=== PATIENT | female | born 1990 | race Two or more races ===

== ENCOUNTER 2017-12-20 18:37 | Emergency (ER) | payer MEDICAID ==
[~2017-12-20] VITALS: Ht 175.3 cm; Wt 90.7 kg
[2017-12-20 18:37] VITALS: BP 109/77
[2017-12-20] MEDS ORDERED: Haloperidol 5mg/ml Inj IM ONE (19:30)
[2017-12-20] MEDS ORDERED: DiphenhydrAMINE 50mg/ml Inj IVP ONE (19:30)
[2017-12-20] MEDS ORDERED: DiphenhydrAMINE 50mg/ml Inj IM ONE (19:30)
--- NOTE | 2017-12-20 19:37 | Emergency Room Report ---
History of Present Illness General Chief Complaint: Behavioral Complaint Source: Patient (Kendall Tate) Present Illness HPI 27-year-old female patient presents ER brought in by ambulance and police for behavioral complaints. Police report that patient was allegedly hitting herself and pushing her mother whenever called to the residence by the mother. Mother reports patient has history of schizophrenia, does not know what medications patient is currently taking. Denies other acute complaints. Denies bleeding or head trauma. Denies vomiting or loss consciousness. Denies fever, chest pain, shortness of breath. Police state patient is not going to be incarcerated at this time. Denies hx of diabetes. Patient was placed on a hold. (Kendall Tate) Allergies: Coded Allergies: No Known Allergies (Unverified , 12/20/17) Patient History Past Medical History: see triage record Reviewed Nursing Documentation: PMH: Agreed; PSxH: Agreed (Kendall Tate) Nursing Documentation-PMH Hx Hypertension: Yes Hx Diabetes: Yes History Of Psychiatric Problem: Yes - schizoprenia (Kendall Tate) Review of Systems All Other Systems: negative except mentioned in HPI (Kendall Tate) Physical Exam Vital Signs Date Time Temp Pulse Resp B/P (MAP) Pulse Ox O2 Delivery O2 Flow Rate FiO2 12/20/17 18:33 97.7 99 18 109/77 96 Room Air 97.7 Sp02 EP Interpretation: reviewed, normal General Appearance: well appearing, no apparent distress, alert, GCS 15, non- toxic Head: normocephalic, atraumatic Eyes: bilateral eye normal inspection, bilateral eye PERRL ENT: hearing grossly normal, normal pharynx, no angioedema, normal voice, uvula midline, moist mucus membranes Neck: full range of motion Respiratory: lungs clear, normal breath sounds, no rhonchi, no respiratory distress, no accessory muscle use, no wheezing, speaking full sentences Cardiovascular #1: regular rate, rhythm, no edema Gastrointestinal: non tender, soft, no mass, non-distended, no guarding, no rebound Genitourinary: no CVA tenderness Musculoskeletal: back normal, digits/nails normal, gait/station normal, normal range of motion, non-tender Neurologic: alert, oriented x3, responsive, motor strength/tone normal, sensory intact Psychiatric: mood/affect normal Skin: no rash (Kendall Ttae) Medical Decision Making PA Attestation Dr. Stephens is my supervising Physician whom patient management has been discussed with. (Kendall Tate) Diagnostic Impression: Primary Impression: Behavioral disorder Additional Impression: Blood glucose elevated ER Course Pt. presents to the ED BIB ambulance and police for behavioral complaint. Ddx considered but are not limited to anxiety, depression, drug use, alcohol use , behavioral disorder. Vital signs: are WNL, pt. is afebrile Ordered labs, urine drug screen, serum alcohol. ER COURSE: Patient behaving erratically and screaming. Provided patient with haloperidol and Benadryl. CBC unremarkable, no elevation in WBC. CMP shows markedly elevated glucose, ordered 2 bags of IV saline fluids. No elevation in BUN or creatinine. acetaminophen and salicylates not elevated, within normal limits, serum blood alcohol less than 3. Patient denies hx of diabetes. Will admit patient for elevated blood sugar. Patient resting comfortably, in no acute distress, nontoxic appearing. Consult with Dr. Stephens, will admit patient an for elevated blood glucose levels without known history of diabetes and for psychiatric evaluation. - Please note that this Emergency Department Report was dictated using [employer] tile [employer]ather technology software, occasionally this can lead to erroneous entry secondary to interpretation by the dictation equipment. Labs Test 12/20/17 19:59 White Blood Count 8.7 K/UL (4.8-10.8) Red Blood Count 5.38 M/UL (4.20-5.40) Hemoglobin 15.8 G/DL (12.0-16.0) Hematocrit 46.0 % (37.0-47.0) Mean Corpuscular Volume 86 FL (80-99) Mean Corpuscular Hemoglobin 29.3 PG (27.0-31.0) Mean Corpuscular Hemoglobin Concent 34.2 G/DL (32.0-36.0) Red Cell Distribution Width 11.2 % (11.6-14.8) Platelet Count 409 K/UL (150-450) Mean Platelet Volume 6.3 FL (6.5-10.1) Neutrophils (%) (Auto) 66.6 % (45.0-75.0) Lymphocytes (%) (Auto) 22.6 % (20.0-45.0) Monocytes (%) (Auto) 7.1 % (1.0-10.0) Eosinophils (%) (Auto) 2.8 % (0.0-3.0) Basophils (%) (Auto) 0.9 % (0.0-2.0) Sodium Level 135 MMOL/L (136-145) Potassium Level 3.9 MMOL/L (3.5-5.1) Chloride Level 100 MMOL/L (98-107) Carbon Dioxide Level 25 MMOL/L (21-32) Anion Gap 11 mmol/L (5-15) Blood Urea Nitrogen 11 mg/dL (7-18) Creatinine 0.8 MG/DL (0.55-1.30) Estimat Glomerular Filtration Rate > 60 mL/min (>60) Glucose Level 510 MG/DL (74-106) Calcium Level 9.2 MG/DL (8.5-10.1) Total Bilirubin 0.5 MG/DL (0.2-1.0) Aspartate Amino Transf (AST/SGOT) 23 U/L (15-37) Alanine Aminotransferase (ALT/SGPT) 52 U/L (12-78) Alkaline Phosphatase 103 U/L (46-116) Total Protein 8.1 G/DL (6.4-8.2) Albumin 3.9 G/DL (3.4-5.0) Globulin 4.2 g/dL Albumin/Globulin Ratio 0.9 (1.0-2.7) Salicylates Level 1.4 ug/mL (2.8-20) Acetaminophen Level < 2 MCG/ML (10-30) Serum Alcohol < 3 mg/dL (Kendall Tate P.A.) ER Course Please see above note by Lea. The patient is more calm this morning. She denies suicidal or homicidal ideation. She wants to go home. I asked what psychiatric medications she takes she states that she is not taking any. I mentioned several names of psychiatric medication and she is not familiar with any of them. Her blood sugar is improved on metformin. Patient is medically cleared at this time for psychiatric evaluation and treatment. The patient was placed on a psychiatric hold and will need psychiatric evaluation during the day or placement in another facility. Repeat accucheck high. Insulin given and metofrmin 500 also. Accepted in transfer. Glucose slightly better 15 min after IV insulin. Laboratory Tests Test 12/20/17 19:59 12/20/17 22:35 12/21/17 06:30 White Blood Count 8.7 K/UL (4.8-10.8) Red Blood Count 5.38 M/UL (4.20-5.40) Hemoglobin 15.8 G/DL (12.0-16.0) Hematocrit 46.0 % (37.0-47.0) Mean Corpuscular Volume 86 FL (80-99) Mean Corpuscular Hemoglobin 29.3 PG (27.0-31.0) Mean Corpuscular Hemoglobin Concent 34.2 G/DL (32.0-36.0) Red Cell Distribution Width 11.2 % (11.6-14.8) L Platelet Count 409 K/UL (150-450) Mean Platelet Volume 6.3 FL (6.5-10.1) L Neutrophils (%) (Auto) 66.6 % (45.0-75.0) Lymphocytes (%) (Auto) 22.6 % (20.0-45.0) Monocytes (%) (Auto) 7.1 % (1.0-10.0) Eosinophils (%) (Auto) 2.8 % (0.0-3.0) Basophils (%) (Auto) 0.9 % (0.0-2.0) Sodium Level 135 MMOL/L (136-145) L 138 MMOL/L (136-145) Potassium Level 3.9 MMOL/L (3.5-5.1) 3.7 MMOL/L (3.5-5.1) Chloride Level 100 MMOL/L (98-107) 106 MMOL/L (98-107) Carbon Dioxide Level 25 MMOL/L (21-32) 24 MMOL/L (21-32) Anion Gap 11 mmol/L (5-15) 8 mmol/L (5-15) Blood Urea Nitrogen 11 mg/dL (7-18) 7 mg/dL (7-18) Creatinine 0.8 MG/DL (0.55-1.30) 0.5 MG/DL (0.55-1.30) L Estimate Glomerular Filtration Rate > 60 mL/min (>60) > 60 mL/min (>60) Glucose Level 510 MG/DL (74-106) *H 267 MG/DL (74-106) #H Calcium Level 9.2 MG/DL (8.5-10.1) 8.2 MG/DL (8.5-10.1) L Total Bilirubin 0.5 MG/DL (0.2-1.0) Aspartate Amino Transferase (AST) 23 U/L (15-37) Alanine Aminotransferase (ALT) 52 U/L (12-78) Alkaline Phosphatase 103 U/L (46-116) Total Protein 8.1 G/DL (6.4-8.2) Albumin 3.9 G/DL (3.4-5.0) Globulin 4.2 g/dL Albumin/Globulin Ratio 0.9 (1.0-2.7) L Salicylates Level 1.4 ug/mL (2.8-20) L Acetaminophen Level < 2 MCG/ML (10-30) L Serum Alcohol < 3 mg/dL Urine Color Pale yellow Urine Appearance Clear Urine pH 7 (4.5-8.0) Urine Specific [place] 1.010 (1.005-1.035) Urine Protein Negative (NEGATIVE) Urine Glucose (UA) 4+ (NEGATIVE) H Urine Ketones 3+ (NEGATIVE) H Urine Occult Blood Negative (NEGATIVE) Urine Nitrite Negative (NEGATIVE) Urine Bilirubin Negative (NEGATIVE) Urine Urobilinogen 1 MG/DL (0.0-1.0) H Urine Leukocyte Esterase 1+ (NEGATIVE) H Urine RBC 0-2 /HPF (0 - 2) Urine WBC 2-4 /HPF (0 - 2) Urine Squamous Epithelial Cells Occasional /LPF Urine Calcium Oxalate Crystals Few /LPF (NONE) Urine Bacteria Occasional /HPF (NONE) Urine HCG, Qualitative Negative (NEGATIVE) Urine Opiates Screen Negative (NEGATIVE) Urine Barbiturates Screen Negative (NEGATIVE) Phencyclidine (PCP) Screen Negative (NEGATIVE) Urine Amphetamines Screen Negative (NEGATIVE) Urine Benzodiazepines Screen Negative (NEGATIVE) Urine Cocaine Screen Negative (NEGATIVE) Urine Marijuana (THC) Screen Negative (NEGATIVE) (Mio Warren M.D.) Last Vital Signs Date Time Temp Pulse Resp B/P (MAP) Pulse Ox O2 Delivery O2 Flow Rate FiO2 12/20/17 18:37 97.7 101 18 109/77 96 Room Air 97.7 (Kendall Tate P.A.) Last Vital Signs Date Time Temp Pulse Resp B/P (MAP) Pulse Ox O2 Delivery O2 Flow Rate FiO2 12/21/17 14:09 97.4 76 18 102/76 99 Room Air 97.4 Status: improved (Mio Warren M.D.) Disposition: XFER TO PSYCH HOSP/UNIT Condition: Serious Scripts Unable to Obtain Active Prescriptions or Reported Meds Kendall Tate Dec 20, 2017 19:37 Mio Warren M.D. Dec 21, 2017 07:14
[2017-12-20 20:19] LABS: BASOPHILS % (AUTO) 0.9 % (0.0-2.0); EOSINOPHILS % (AUTO) 2.8 % (0.0-3.0); HEMOGLOBIN 15.8 G/DL (12.0-16.0); LYMPHOCYTES % (AUTO) 22.6 % (20.0-45.0); MEAN CORPUSCULAR VOLUME 86 FL (80-99); MONOCYTES % (AUTO) 7.1 % (1.0-10.0); NEUTROPHILS % (AUTO) 66.6 % (45.0-75.0); PLATELET COUNT 409 K/UL (150-450); RED BLOOD COUNT 5.38 M/UL (4.20-5.40); RED CELL DISTRIBUTION WIDTH 11.2 % (11.6-14.8); WHITE BLOOD COUNT 8.7 K/UL (4.8-10.8)
[2017-12-20 20:35] LABS: ALANINE AMINOTRANSFERASE 52 U/L (12-78); ALBUMIN 3.9 G/DL (3.4-5.0); ALBUMIN/GLOBULIN RATIO 0.9 (1.0-2.7); ALKALINE PHOSPHATASE 103 U/L (46-116); ANION GAP 11 mmol/L (5-15); ASPARTATE AMINO TRANSFERASE 23 U/L (15-37); BILIRUBIN,TOTAL 0.5 MG/DL (0.2-1.0); BLOOD UREA NITROGEN 11 mg/dL (7-18); CALCIUM 9.2 MG/DL (8.5-10.1); CARBON DIOXIDE 25 MMOL/L (21-32); CHLORIDE 100 MMOL/L (98-107); CREATININE 0.8 MG/DL (0.55-1.30); POTASSIUM 3.9 MMOL/L (3.5-5.1); SODIUM 135 MMOL/L (136-145)
[2017-12-20] MEDS ORDERED: Insulin Human Regular 100units/ml 3ml SUBQ ONE (21:30)
[2017-12-20 22:04] VITALS: BP 100/65
[2017-12-20 22:50] LABS: APPEARANCE,URINE CLEAR; BILIRUBIN, URINE NEGATIVE (NEGATIVE); COLOR,URINE PALE YELLOW; GLUCOSE, URINE (UA) 4+ (NEGATIVE); KETONES,URINE 3+ (NEGATIVE); LEUKOCYTE ESTERASE ,URINE 1+ (NEGATIVE); NITRITE,URINE NEGATIVE (NEGATIVE); PH,URINE 7 (4.5-8.0); PROTEIN,URINE NEGATIVE (NEGATIVE); UROBILINOGEN,URINE 1 MG/DL (0.0-1.0)
[2017-12-21 01:00] VITALS: BP 100/64
[2017-12-21 05:11] VITALS: BP 105/63
[2017-12-21 06:51] LABS: ANION GAP 8 mmol/L (5-15); BLOOD UREA NITROGEN 7 mg/dL (7-18); CALCIUM 8.2 MG/DL (8.5-10.1); CARBON DIOXIDE 24 MMOL/L (21-32); CHLORIDE 106 MMOL/L (98-107); CREATININE 0.5 MG/DL (0.55-1.30); POTASSIUM 3.7 MMOL/L (3.5-5.1); SODIUM 138 MMOL/L (136-145)
[2017-12-21] MEDS: metFORMIN 500mg tab ORAL SCH ×2 (07:16→08:52)
[2017-12-21 07:19] VITALS: BP 99/68
[2017-12-21 11:30] VITALS: BP 91/60
[2017-12-21] MEDS ORDERED: metFORMIN 500mg tab ORAL STA (13:22)
[2017-12-21] MEDS ORDERED: Insulin Human Regular 100units/ml 3ml IV ONE (13:30)
[2017-12-21 14:09] VITALS: BP 102/76
== END 2017-12-21 13:30 | disposition other institution (70) ==
LOC: EDBD 18:37 → EMR 19:24 → CANBEDREQ 12-21 05:04 → EMR 12-21 13:30
DX: F91.9 Conduct disorder, unspecified (principal); E11.65 Type 2 diabetes mellitus with hyperglycemia
CPT/HCPCS: 36415; 80048; 80053; 80307; 80329; 81003; 81025; 82962; 85025; 96372; 96374; 96375; 99285; J1200; J1630; J1815